=== PATIENT | female | born 1960 | race African-American/Black ===

== ENCOUNTER 2021-03-08 22:18 | Emergency (ER) | payer OTHER, BC ==
[~2021-03-08] VITALS: Ht 157.5 cm; Wt 204.0 kg
[~2021-03-08 22:18] MED LIST: ACETTAB3 OR; AMOXICILLIN500 MG OR; ENABLEX15 MG OR; ENABLEX7.5 MG PO; FLAGYL500 MG PO; IRON PILLS; NAPROSYN500 MG OR; NO MEDS
[2021-03-08] MEDS ORDERED: MOTRIN800 MG PO (23:30)
[2021-03-08] MEDS ORDERED: FLEXERIL5 M1 PO (23:30)
[2021-03-09 00:04] VITALS: BP 140/83
== END 2021-03-09 00:18 | disposition home or self-care (01) | DRG 563 ==
LOC: ED 22:18
DX: S39.012A Strain of muscle, fascia and tendon of lower back, initial encounter (principal); V43.62XA Car passenger injured in collision with other type car in traffic accident, initial encounter